=== PATIENT | female | born 1995 | race Caucasian/White ===

== ENCOUNTER 2016-06-15 20:19 | Emergency (ER) | payer BC ==
[~2016-06-15] VITALS: Ht 182.9 cm; Wt 63.6 kg
[2016-06-15 20:21] VITALS: TEMP 98.9
[2016-06-15] MEDS ORDERED: SYNTHROID0.075 MG/T PO (20:24)
[2016-06-15 20:53] LABS: BASO % 0.4 % (0.0-2.0); EOS % 0.4 % (0-4.0); GRAN # 8.1 (1.4-6.5); GRAN % 84.8 % (42.2-75.2); HEMATOCRIT 40.4 % (37.0-47.0); HEMOGLOBIN 14.4 g/dl (12.5-16.0); LYMPH # 0.9 (1.2-3.4); LYMPH % 9.8 % (20.0-51.0); MEAN CELL VOLUME 86 fl (80.0-100.0); MEAN CORPUSCULAR HEMOGLOBIN 31 pg (27.0-31.0); MEAN CORPUSCULAR HGB CONC 36 g/dl (33.0-37.0); MEAN PLATELET VOLUME 10.1 fl (7.4-10.4); MONO # 0.4 (0.1-0.6); MONO % 4.4 % (1.7-9.3); PLATELET COUNT 195 K/mm3 (130-400); RED BLOOD COUNT 4.69 M/mm3 (4.10-5.30); REDCELL DISTRIBUTION WIDTH-CV 12.3 % (11.5-14.5); WHITE BLOOD COUNT 9.5 K/mm3 (4.8-10.8)
[2016-06-15 20:57] LABS: PH 5 (5-8); SQUAMOUS EPITHELIAL 0-2 /hpf; URINE APPEARANCE Clear; URINE BACTERIA None Seen /hpf; URINE BILIRUBIN Negative (NEGATIVE); URINE BLOOD Negative (NEGATIVE); URINE COLOR Yellow; URINE GLUCOSE Negative (NEGATIVE); URINE KETONE Negative (NEGATIVE); URINE RBC 0-2 /hpf; URINE UROBILINOGEN Negative (NEGATIVE); URINE WBC 0-2 /hpf
[2016-06-15 21:04] LABS: ADJUSTED CALCIUM 9.1 mg/dL (8.4-10.2); ALBUMIN 4.7 gm/dL (3.5-5.0); BILIRUBIN,TOTAL 1.1 mg/dL (0.0-1.0); CALCIUM 9.7 mg/dL (8.4-10.2); CREATININE, serum 0.74 mg/dL (0.52-1.25); POTASSIUM 3.7 mmol/L (3.4-5.0); TOTAL PROTEIN 7.8 gm/dL (6.4-8.2)
[2016-06-15] MEDS ORDERED: ULTRAM 50MG TAB50 MG PO (21:42)
[2016-06-15] MEDS ORDERED: ZOFRAN8 MG PO (21:42)
[2016-06-15 22:26] VITALS: BP 102/63; PULSE 70
== END 2016-06-15 22:24 | disposition home or self-care (01) ==
LOC: COL.ER 20:19
PROVIDERS: Emergency Medicine
DX: R10.32 Left lower quadrant pain (principal)
CPT/HCPCS: J1170; J1885; J2405; J7030

== ENCOUNTER 2017-03-19 19:51 | Emergency (ER) | payer BC ==
[~2017-03-19] VITALS: Ht 182.9 cm; Wt 61.4 kg
[~2017-03-19 19:51] MED LIST: SYNTHROID0.075 MG/T PO; ULTRAM 50MG TAB50 MG PO; ZOFRAN8 MG PO
[2017-03-19 20:00] VITALS: TEMP 102.6
[2017-03-19 21:36] LABS: INFLUENZA A NEGATIVE; INFLUENZA B NEGATIVE
[2017-03-19] MEDS ORDERED: ZITHROMAX 250M250 MG PO (22:07)
[2017-03-19 22:13] VITALS: BP 101/64; PULSE 92
== END 2017-03-19 22:17 | disposition home or self-care (01) ==
LOC: COL.ER 19:51
PROVIDERS: Physician Assistant
DX: J40 Bronchitis, not specified as acute or chronic (principal); E03.9 Hypothyroidism, unspecified